=== PATIENT | male | born 1995 | race Caucasian/White ===

== ENCOUNTER → 2017-02-24 | Outpatient (CLI) | payer OTHER ==
[~2017-02-24] MED LIST: CEPHALEXIN500 MG PO; LORTAB 5/500 501 TAB PO; NOMEDS
--- NOTE | 2017-02-24 16:46 | RADIOLOGY REPORT PS360 ---
KNEE-3 VIEWS-RT HISTORY: RT KNEE PAIN,INSTABILITY ORDERING PHYSICIAN: Pattie ESTEVES PATIENT AGE: 21 years COMPARISON: None FINDINGS: No fracture or dislocation. No lytic or blastic change. Normal mineralization. No significant arthritic changes evident. There is a moderate size suprapatellar knee joint effusion. On the AP view there is a small calcific density projecting superior to the medial tibial spine. This is of questionable clinical significance only seen on this one view possibly in the infrapatellar region on the lateral view. IMPRESSION: 1. No acute fracture. 2. Moderate size suprapatellar effusion
== END ==
LOC: RAD 16:16
DX: S89.91XA Unspecified injury of right lower leg, initial encounter (principal); M25.361 Other instability, right knee

== ENCOUNTER 2017-03-29 22:16 | Emergency (ER) | payer OTHER ==
[~2017-03-29] VITALS: Ht 170.2 cm; Wt 99.8 kg
--- OUTSIDE RECORDS SUMMARY | 2017-03-29 22:35 | External Medical Summary Rpt | CCD ---
Author Author [employer] Organization [employer] Address Unknown Phone Unavailable Purpose Continuity of Care Document - through 2016
--- OUTSIDE RECORDS SUMMARY | 2017-03-29 22:35 | External Medical Summary Rpt | CCD ---
Demographics Preferred Language Irish Marital Status Unknown Voodoo Affiliation Unknown Race Unknown Ethnic Group Unknown Author Author , ENRIQUE ORTIZ Address Unknown Phone Immunization No patient found.
--- OUTSIDE RECORDS SUMMARY | 2017-03-29 22:35 | External Medical Summary Rpt ---
Author Author [facility] Mayfield, [employer] Organization [employer] Address Unknown Phone Unavailable
--- OUTSIDE RECORDS SUMMARY | 2017-03-29 22:35 | External Medical Summary Rpt | CCD ---
Demographics Preferred Language Danish Marital Status Unknown Restoration Affiliation Unknown Race Unknown Ethnic Group Unknown Author Author , ENRIQUE ORTIZ Address Unknown Phone Immunization No patient found.
--- OUTSIDE RECORDS SUMMARY | 2017-03-29 22:35 | External Medical Summary Rpt | CCD ---
Author Author , ENRIQUE ORTIZ Address Unknown Phone [email or web address] Purpose Continuity of Care Document - through 2016
--- OUTSIDE RECORDS SUMMARY | 2017-03-29 22:35 | External Medical Summary Rpt | CCD ---
Author Author , ENRIQUE ORTIZ Address Unknown Phone Purpose Continuity of Care Document - through 2016
[2017-03-30] MEDS ORDERED: BACTRIM DS 8001 TA1 PO (01:23)
--- NOTE | 2017-03-30 01:24 | Emergency Room Report ---
History of Present Illness Time Seen by [id number] Presenting Problem in Triage Pt arrived:Walked Presenting Problem:STATES CUT INDEX AND PINKY OF L FINGER WHILE WORKING ON VEHICLE ABOUT 10 TONIGHT Onset of symptoms date/time:/ or onset unknown for:MEDICAL HX UNKNOWN Treatment Prior to Arrival: ACCOUNT UNDERWRITER Provided by: Sepsis Risk Assessment: Temp: 97.2 B/P: 153/78 MAP: 103 Pulse: 97 Resp: 20 Recent fever? N Clinical Suspician of Infection? N Mental Status: 1 - Regular (Normal Baseline) Sepsis Risk:Possible Sepsis Risk Have you (or family members/close friends) recently traveled outside the [place]? N If Yes, where/when: Have you had exposure to infectious disease within the past month? N TB? Other? Specify: Source patient, RN notes reviewed, family, RN/MD Exam Limitations no limitations Comment This is a 22-year-old male patient presenting to the emergency room with a second and LEFT fifth fingers with a piece of glass, sustained just prior to arrival. ALLERGIES Coded Allergies: No Known Allergies (03/30/17) Home Medications Reported Medications No Home Medications (NO HOME MEDICATIONS) History Medical History General CAD? No Angina: No ID: No Hypertension? No Hyperlipidemia? No CHF? No DVT? No PE? No COPD? No Asthma? No Anemia? No GERD? No Gastric ulcers? No GI Bleed? No Hernia? No Thyroid Problems? No Hypothyroidism? No CVA? No Seizures? No Diabetes? No Insulin Dependent: No Insulin Pump: No Home FSBS? No Renal Insuffiency? No End Stage Renal Disease? No UTI? No Stones? No BPH? No GB Disease: No Nephritic Syndrome? No Asplenia? No Hepatitis? No Sickle Cell Disease? No Arthritis? No Migraines? No Cataracts? No Glaucoma? No MRSA? No HIV? No TB? No Anxiety? No Depression? No Cancer? No Immunization Hx DT/Tetanus 1-4 YRS Flu NEVER Pneumonia NEVER Surgical Hx Previous Surgery?Y Oral Surgery COLLAR BONE RIGHT Family History Family Hx Diabetes Yes CAD No Hypertension Yes Hyperlipidemia No Cancer No TB No Social History Smoking Hx Smoker: Never Smoker Tobacco: No Alcohol Alcohol: No Review of Systems All Other Systems Reviewed and Negative Skin lesions (lacerations left ahnd) Physical Exam Vital Signs Vital Signs Date Time Temp Pulse Resp B/P Pulse O2 O2 Flow FiO2 Ox Delivery Rate 03/30 0136 97.2 97 20 153/78 98 03/29 2221 97.2 97 20 153/78 98 General Appearance normal appearance, WD/WN, no apparent distress Respiratory Status Yes: trachea midline, chest symmetrical, non tender chest. No: respiratory distress. Lung Sounds bilateral: normal breath sounds, lungs clear. Cardiovascular normal exam, regular rate/rhythm, no peripheral edema, no gallop, no JVD, no murmur, no rub, normal peripheral pulses Gastrointestinal normal bowel sounds, normal exam, non tender, soft, no organomegaly Extremities non-tender, normal range of motion, normal inspection Neurologic alert, supervisor insecticide II-XII nml as tested, normal exam, oriented x 3 Mental status normal mood/affect Skin normal color, warm/dry, left 2nd finger proximal phalangeal laceration, 2 cm long, subcutaneous LEFT fifth finger middle phalangeal laceration, 1 cm long, subcutaneous Medical Decision Making LABS/Meds/Orders Pt receiving controlled substance in ED? No Comment 0105am-patient tolerated procedure well, instructed to follow up with PCP for suture removal, change dressing daily, watch for signs of possible local infection. Will place patient on oral antibiotics, in order to protect him from possible local infection. Results/Orders Current Medication Orders Sig/Pippa Start time Last Medication Dose Route Stop Time Status Admin Trimethoprim/ 0 .STK-MED ONE 03/30 132 DC Sulfamethoxazole PO Trimethoprim/ 1 TABLET ONCE ONE 03/30 115 DCr 03/30 Sulfamethoxazole PO 03/30 116 013 Lidocaine HCl 0 .STK-MED ONE 03/30 001 DC .ROUTE Procedures Laceration/Wound Repair Laceration/Wound Repair 1 Risks/benefits discussed with pt/guardian? Yes Tetanus status up to date Wound Location LEFT second finger, proximal phalange he Wound Length (cm) 2 Wound's Depth, Shape stellate Wound Explored clean Risk of retained FB explained to pt/guardian? Yes Irrigated w/ Saline (ccs) 20 Wound Prep Betadine, Saline Anesthesia 1% Lidocaine, Digital block Volume Anesthetic (ccs) 10 Wound Debrided none Wound Repaired With sutures Suture Size/Type 4:0, Ethilon Total Number Sutures 7 Sterile Dressing Applied Yes Splint Applied No Laceration/Wound Repair 2 Risks/benefits discussed with pt/guardian? Yes Tetanus status up to date Wound Location LEFT fifth finger, middle phalange Wound Length (cm) 1 Wound's Depth, Shape linear Wound Explored clean Risk of retained FB explained to pt/guardian? Yes Irrigated w/ Saline (ccs) 10 Wound Prep Betadine, Saline Anesthesia 1% Lidocaine, Digital block Volume Anesthetic (ccs) 10 Wound Debrided none Wound Repaired With sutures Suture Size/Type 4:0, Ethilon Total Number Sutures 4 Sterile Dressing Applied No Splint Applied No Departure Departure Time of Disposition 0120 Disposition DC Home or Self Care(routine) Clinical Impression Primary Impression: Laceration Condition STABLE Referrals Allen CASEY,A.C. (Family) in 10 days for suture removal Patient Instructions DI for Open Laceration Additional Instructions Keep wound clean, dry, cover with triple antibiotic ointment. Watch for signs of infection: red, swollen, hot, tender, purulent discharge. ~ Increased pain or develops fever.~ Drainage or bad odor from wound.~ Notify physician or return to Emergency Department if these develop. Tylenol/Ibuprofen as needed for pain. Have stitches removed as instructed by physician in 10 days. Contact your MD in office in a.m. to report progress and arrange follow up. If problems worsen, or new problems arise, contact MD promptly or return to ED. Discharge Counseling Counseled pt/family regarding diagnosis, medications/RX, home care, follow up needs Comment Keep wound clean, dry, cover with triple antibiotic ointment. Watch for signs of infection: red, swollen, hot, tender, purulent discharge. ~ Increased pain or develops fever.~ Drainage or bad odor from wound.~ Notify physician or return to Emergency Department if these develop. Tylenol/Ibuprofen as needed for pain. Have stitches removed as instructed by physician in 10 days. Contact your MD in office in a.m. to report progress and arrange follow up. If problems worsen, or new problems arise, contact MD promptly or return to ED. Prescriptions Current Visit Scripts SULFAMETHOXAZOLE W/TRIMETHOPRI (Bactrim Ds Tab) 1 TABLET PO BID #14 TAB ED Critical [place] 0610
[2017-03-30 01:36] VITALS: BP 153/78
== END 2017-03-30 01:37 | disposition home or self-care (01) ==
LOC: ER 22:16
PROC: 0HQGXZZ Repair Left Hand Skin, External Approach (ICD-10-PCS; principal; 2017-03-30)
DX: S61.211A Laceration without foreign body of left index finger without damage to nail, initial encounter (principal); S61.217A Laceration without foreign body of left little finger without damage to nail, initial encounter